=== PATIENT | male | born 1950 | race Hispanic/Latino ===

== ENCOUNTER 2017-09-14 18:49 | Emergency (ER) | payer BC, OTHER ==
[~2017-09-14] VITALS: Ht 167.6 cm; Wt 75.3 kg
--- NOTE | 2017-09-14 20:52 | Diagnostic Imaging Report ---
EXAMINATION: CHEST 2 VIEWS 09/14/2017 7:20 PM COMPARISON: None INDICATION: Cough for 2 weeks DISCUSSION: LINES: None. LUNGS: The lungs are well inflated and clear. No pneumonia or pulmonary edema. PLEURA: No pleural effusion or pneumothorax. HEART AND MEDIASTINUM: Normal heart size. Mildly tortuous aorta. BONES AND SOFT TISSUES: No acute osseous lesion. The soft tissues are normal. IMPRESSION: No acute cardiopulmonary disease. Vik Castillo MD Signed by: Dr. Vik Castillo M.D. on 09/14/2017 8:48 PM
[2017-09-14 22:16] VITALS: BP 146/99
== END 2017-09-14 22:23 | disposition home or self-care (01) ==
LOC: ER 18:49
DX: J30.1 Allergic rhinitis due to pollen (principal)
CPT/HCPCS: 71046; 99283